=== PATIENT | female | born 1955 | race Caucasian/White ===

== ENCOUNTER 2018-07-16 07:01 | Emergency (ER) | payer BC, OTHER ==
[2018-07-16 07:13] VITALS: BP 135/78
--- NOTE | 2018-07-16 07:33 | UC ---
Throat Pain/Nasal Rainer HPI - HPI Summary HPI Summary: 63-year-old woman comes in with upper respiratory tract infection symptoms for 4 days. Patient's had a runny nose sore throat and chest congestion. She used [id number] medications which did help with the sore throat and help bring up sputum. The rhinorrhea is clear. The sputum has a tinge of green to it. Patient is on chemotherapy for lung cancer. She finished her lung cancer chemotherapy most recent treatment 11 days ago. She does feel congestion in her chest. No history of COPD or asthma. - History of Current Complaint Chief Complaint: UCRespiratory Stated Complaint: SORE THROAT/CHEST CONGESTION Time Seen by Provider: 07/16/18 07:10 Pain Intensity: 0 - Allergies/Home Medications Allergies/Adverse Reactions: Allergies Allergy/AdvReac Type Severity Reaction Status Date / Time Penicillins Allergy Mild Hives Verified 07/16/18 07:13 acetaminophen [From Percocet] AdvReac Mild Constipatio Verified 07/16/18 07:13 n oxycodone [From Percocet] AdvReac Mild Constipatio Verified 07/16/18 07:13 n Home Medications: Home Medications Ondansetron TAB* [Zofran 4 MG Tab*] 4 mg PO Q6H PRN 07/16/18 [History Confirmed 07/16/18] PMH/Surg Hx/FS Hx/Imm Hx Previously Healthy: Yes - LUNG CANCER Other History Of: Negative For: Anticoagulant Therapy - Surgical History Surgical History: Yes Surgery Procedure, Year, and Place: TUBAL LIGATION - Family History Known Family History: Positive: None Negative: Other - GI d/o's - Social History Alcohol Use: Rare Substance Use Type: None Smoking Status (MU): Heavy Every Day Tobacco Smoker Amount Used/How Often: 3/4th pk/day Review of Systems All Other Systems Reviewed And Are Negative: Yes Constitutional: Positive: Negative Skin: Positive: Negative Eyes: Positive: Negative ENT: Positive: Sore Throat, Nasal Discharge, Sinus Congestion Respiratory: Positive: Cough, Other - SEE HPI Cardiovascular: Positive: Negative Gastrointestinal: Positive: Negative Motor: Positive: Negative Neurovascular: Positive: Negative Musculoskeletal: Positive: Negative Neurological: Positive: Negative Psychological: Positive: Negative Is Patient Immunocompromised?: No Physical Exam Triage Information Reviewed: Yes Appearance: Well-Appearing, No Pain Distress, Well-Nourished Vital Signs: Initial Vital Signs Temp 99.1 F 07/16/18 07:07 Pulse 110 07/16/18 07:07 Resp 16 07/16/18 07:07 BP 135/78 07/16/18 07:07 Pulse Ox 96 07/16/18 07:07 Vital Signs Reviewed: Yes Eye Exam: Normal Eyes: Positive: Conjunctiva Clear ENT: Positive: Pharyngeal erythema, Nasal congestion, TMs normal Neck: Positive: Supple Respiratory: Positive: Lungs clear, Normal breath sounds, No respiratory distress Cardiovascular: Positive: RRR Musculoskeletal Exam: Normal Musculoskeletal: Positive: Strength Intact, ROM Intact Neurological Exam: Normal Neurological: Positive: Alert, Muscle Tone Normal Psychological Exam: Normal Psychological: Positive: Age Appropriate Behavior Skin Exam: Normal Throat Pain/Nasal Course/Dx - Course Course Of Treatment: Because the patient is potentially immunocompromised we will treat with antibiotics. - Differential Dx/Diagnosis Provider Diagnosis: Upper respiratory infection Discharge - Sign-Out/Discharge Documenting (check all that apply): Patient Departure All imaging exams completed and their final reports reviewed: No Studies - Discharge Plan Condition: Stable Disposition: HOME Prescriptions: Azithromyxin JOY (NF) [Z-Joy (Zithromax) 250 mg tabs #6] 2 tab PO .TODAY, THEN 1 DAILY #6 tab Patient Education Materials: Upper Respiratory Infection (ED) Referrals: Alison Dunbar MD [Primary Care Provider] - Additional Instructions: FOLLOW UP WITH YOUR DOCTOR IF NOT COMPLETELY IMPROVED. GET RECHECKED SOONER IF YOUR CONDITION WORSENS OR ANY QUESTIONS OR CONCERNS. - Billing Disposition and Condition Condition: STABLE Disposition: Home
== END 2018-07-16 07:40 | disposition home or self-care (01) ==
LOC: UCEAST 07:01
DX: J06.9 Acute upper respiratory infection, unspecified (principal); C34.90 Malignant neoplasm of unspecified part of unspecified bronchus or lung; Z88.0 Allergy status to penicillin; F17.210 Nicotine dependence, cigarettes, uncomplicated
CPT/HCPCS: 99212; G0463